=== PATIENT | male | born 1985 | race Two or more races ===

== ENCOUNTER 2019-04-25 08:05 | Day surgery (SDC) | payer MEDICAID ==
[~2019-04-25] VITALS: Ht 170.2 cm; Wt 80.7 kg
[2019-04-25 10:14] LABS: GLUCOSE CSF 62 mg/dL (41-75)
[2019-04-30 13:06] LABS: MYELIN BASIC PROTEIN CSF 2.6 ng/mL (0.0-3.8)
== END 2019-04-25 15:35 | disposition home or self-care (01) ==
LOC: RADANGIO 08:05
PROVIDERS: ATTEND Psychiatry & Neurology Neurology
DX: G35 Multiple sclerosis (principal); Z79.899 Other long term (current) drug therapy
CPT/HCPCS: 62270; 62328; 77003; 82945; 83516; 83873; 83916; 84157; 86256